=== PATIENT | male | born 1945 | race Caucasian/White ===

== ENCOUNTER 2018-05-29 08:15 | Emergency (ER) | payer MEDICARE, OTHER ==
[~2018-05-29] VITALS: Ht 177.8 cm; Wt 92.1 kg
[~2018-05-29 08:15] MED LIST: CADUET 10 MG-11 EACH PO; LISINOPRIL40 MG PO; NORCO 10-325 T1 EACH PO; PRILOSEC OTC20 MG PO; SUCRALFATE1 GM PO; TESTOSTERONE IM; VALIUM5 MG PO
[2018-05-29] MEDS ORDERED: SODIUM CHLORIDE 0.9% 1000ML 1,000 ML IV STA (08:18)
[2018-05-29] MEDS ORDERED: HYDRALAZINE HCL 20 MG/ML VIAL IV NR (08:30)
[2018-05-29 09:42] LABS: BASOPHILS % 0.4 % (0.0-1.0); EOSINOPHILS # (AUTO) 0.1 (0.0-0.4); EOSINOPHILS % 0.6 % (0.0-6.0); HEMATOCRIT 50.9 % (38.2-49.6); LYMPHOCYTES # (AUTO) 1.8 (1.0-3.2); LYMPHOCYTES % 22.4 % (18.0-39.1); MEAN CORPUSCULAR HEMOGLOBIN 31.4 pg (28-32); MEAN CORPUSCULAR HGB CONC 35.4 g/dL (31-35); MEAN CORPUSCULAR VOLUME 88.8 fL (81-99); MONOCYTES # (AUTO) 0.7 (0.2-0.8); MONOCYTES % 8.9 % (4.4-11.3); NEUTROPHILS # (AUTO) 5.5 (2.1-6.9); NEUTROPHILS % 67.1 % (38.7-80.0); PLATELET COUNT 263 x10e3/uL (140-360); RED BLOOD COUNT 5.73 x10e6/uL (4.3-5.7); RED CELL DISTRIBUTION WIDTH 12.3 % (11.7-14.4)
[2018-05-29 10:00] LABS: ALANINE AMINOTRANSFERASE 20 IU/L (0-55); ALBUMIN 4.8 g/dL (3.5-5.0); ALBUMIN/GLOBULIN RATIO 1.5 (0.8-2.0); ALKALINE PHOSPHATASE 62 IU/L (40-150); ANION GAP 13.6 mmol/L (8-16); BLOOD UREA NITROGEN 11 mg/dL (7-26); BUN/CREATININE RATIO 11 (6-25); CALCIUM 10.6 mg/dL (8.4-10.2); CARBON DIOXIDE 27 mmol/L (22-29); CHLORIDE 101 mmol/L (98-107); CREATINE KINASE 125 IU/L (30-200); CREATININE, SERUM 0.98 mg/dL (0.72-1.25); EST GLOMERULAR FILTRATION RATE > 60 ML/MIN (60-); GLUCOSE 113 mg/dL (74-118); POTASSIUM 3.6 mmol/L (3.5-5.1); SODIUM 138 mmol/L (136-145)
--- NOTE | 2018-05-29 10:19 | Diagnostic Imaging Report ---
EXAMINATION: CHEST SINGLE (PORTABLE) COMPARISON: None FINDINGS: TUBES and LINES: None. LUNGS: Low lung volumes. Linear subsegmental atelectasis at the right lung base. There is no evidence of pneumonia or pulmonary edema. PLEURA: No pleural effusion or pneumothorax. Slight nonspecific elevation of the right hemidiaphragm. HEART AND MEDIASTINUM: The cardiomediastinal silhouette is unremarkable. BONES AND SOFT TISSUES: No acute osseous lesion. Soft tissues are unremarkable. UPPER ABDOMEN: No free air under the diaphragm. IMPRESSION: No acute radiographic abnormality. Signed by: Dr. Sirena Gomez MD on 05/29/2018 10:16 AM
[2018-05-29 10:23] LABS: BILIRUBIN,URINE NEGATIVE (NEGATIVE); CLARITY,URINE CLEAR (CLEAR); COLOR,URINE YELLOW (YELLOW); KETONES,URINE NEGATIVE (NEGATIVE); LEUKOCYTE ESTERASE ,URINE NEGATIVE (NEGATIVE); NITRITE,URINE NEGATIVE (NEGATIVE); PROTEIN,URINE DIPSTICK NEGATIVE (NEGATIVE); URINE UROBILINOGEN 0.2 mg/dL (0.2 - 1)
--- NOTE | 2018-05-29 10:32 | Diagnostic Imaging Report ---
History:Dizziness, sweating more in the usual Comparison studies:None Technique: Axial images were obtained from the skull base to the vertex. Coronal and sagittal images reconstructed from the axial data. Intravenous contrast: None Dose modulation, iterative reconstruction, and/or weight based adjustment of the mA/kV was utilized to reduce the radiation dose to as low as reasonably achievable. Findings: Scalp/skull: No abnormalities. Extra-axial spaces: No masses. No fluid collections. Brain sulci: Age-appropriate. Ventricles: Age-appropriate. No hydrocephalus. Parenchyma: Few hypodensities in the supratentorial white matter are small vessel ischemic changes. No masses, hemorrhage, acute or chronic cortical vascular insults. Sellar/suprasellar region: No abnormalities. Craniocervical junction: Patent foramen magnum. No Chiari one malformation. Incidental findings: Atherosclerotic calcifications in the carotid siphons and vertebral . Impression: No acute abnormalities. Chronic findings: 1. Mild supratentorial white matter small vessel ischemic changes. Signed by: DR Darin Grace M.D. on 05/29/2018 10:29 AM
[2018-05-29 10:36] LABS: EPITHELIAL CELLS,URINE RARE /LPF; WBC,URINE (MAN) 0-5 /HPF (0-5)
--- OUTSIDE RECORDS SUMMARY | 2018-06-07 11:24 | XMS REPORT ---
Author Organization Unknown Address [address] [place] [id number] Phone [phone] Care Team Providers Care Senior Sales Operations Analyst Name Role Phone LUDWIG ESCALERA MD 124 [phone] IZZY KINGSLEY MD 104 [phone] Allergies Code Code System Name Reaction Severity Status Onset NKDA Medications Name Status Start Date Stop Date acetaminophen 300 mg-codeine 30 mg tablet Completed 08/18/2017 amlodipine 10 mg-atorvastatin 10 mg tablet TAKE 2 TABLETS BY MOUTH EVERY DAY DIRECTED Active Not available amoxicillin 500 mg capsule Completed 05/12/2016 Cialis 20 mg tablet Completed 05/12/2016 cyanocobalamin (vit B-12) 1,000 mcg/mL injection solution 1 cc every 2 weeks Completed 08/31/2016 Dexilant 60 mg capsule, delayed release Active Not available diazepam 5 mg tablet Active Not available doxepin 10 mg capsule Take 1 capsule as needed by oral route at bedtime for 30 days. Completed 02/11/2017 hydrochlorothiazide 12.5 mg capsule Take 1 capsule every day by oral route as needed for 90 days. Active Not available hydrochlorothiazide 12.5 mg tablet take 1 tablet by mouth every day Completed 05/12/2017 hydrocodone 10 mg-acetaminophen 325 mg tablet Active Not available Jublia 10 % topical solution with applicator Completed 05/12/2016 lidocaine-prilocaine 2.5 %-2.5 % topical cream Completed 08/18/2017 lisinopril 40 mg tablet Take one tablet by mouth once a day Active Not available meloxicam 15 mg tablet PRN - FROM SURGEON AT [facility] Active Not available methocarbamol 500 mg tablet Completed 08/18/2017 metronidazole 0.75 % topical gel Completed 08/31/2016 mtzdblnj-lmammbsbo-xhjdgadw 3.5 mg/mL-10,000 unit/mL-0.1% eye drops Completed 11/24/2017 omeprazole 20 mg capsule,delayed release Take every day by oral route for 90 days. Completed 08/13/2016 08/31/2016 omeprazole 40 mg capsule,delayed release Take 1 capsule every day by oral route. Active Not available Periogard 0.12 % mouthwash Completed 05/12/2016 prednisolone acetate 1 % eye drops,suspension Completed 05/12/2016 promethazine 25 mg tablet Completed 08/18/2017 ranitidine 300 mg tablet Take 1 tablet every day by oral route. Completed 05/12/2017 Stendra 200 mg tablet Completed 08/31/2016 sucralfate 1 gram tablet Take 1 tablet twice a day by oral route for 90 days. Completed 08/31/2016 testosterone cypionate 200 mg/mL intramuscular oil Inject 1.5 mL every 2 weeks by intramuscular route. Active Not available Viagra 100 mg tablet TAKE 1 TABLET BY MOUTH EVERY DAY NEEDED Active Not available Problems Name Status Onset Date Source Hyperlipidemia Active 05/12/2016 Anxiety Active 05/12/2016 Insomnia Active 05/12/2016 Hypertensive Disorder Active 05/12/2016 Gastroesophageal Reflux Disease Active 05/12/2016 Primary Erectile Dysfunction Active 05/12/2016 Decreased Testosterone Level Active 05/12/2016 Procedures Date Name Performed by 05/23/2017 Knee Surgery Notes: LEFT Information not available 11/10/2016 Carpal Tunnel Surgery Notes: Right Information not available 08/23/2016 Other Information not available 05/23/2016 Carpal Tunnel Surgery Notes: RT Information not available 11/30/2009 Egd Information not available 11/30/2009 Colonoscopy Notes: REPEAT IN 5 YRS Information not available 08/13/2016 Electrocardiogram [facility] [address] [place] [address] (Work Place) Lab Results Date Name Specimen Result Interpretation Description Value Range Status Address 08/21/2017 Fecal Occult Blood, Stool Fecal Globin (Medicare) by Immunochemistry not detected Final [facility] Laboratory: [address] [address], [place] 08/18/2017 PSA, Serum or Plasma PSA, Total 1.30 NG/mL <4.00 NG/mL Final [facility] Laboratory: [address] [place] [address], [place] 06/01/2017 PTH (Parathyroid Hormone), Intact, Serum or Plasma Normal Parathyroid Hormone, Intact 36 pg/mL 14-64 pg/mL Final [facility]: [address] [place], [place] [address] 05/12/2017 CBC W/ Auto Diff Wbc 6.61 x10*3/L 4.23-9.07 x10*3/L Final [facility]: [address] [facility] Rbc 5.15 10*12/L 4.63-6.08 10*12/L Final [facility]: [address] [facility] Hemoglobin 16.60 g/dL 13.70-17.50 g/dL Final [facility]: [address] [facility] Hematocrit 47.3 % 40.1-51.0 % Final [facility]: [address] [facility] Mcv 91.8 fL 80.0-100.0 fL Final [facility]: [address] [facility] Mch 32.2 pg 25.7-32.2 pg Final [facility]: [address] [facility] Mchc 35.1 g/dL 32.3-36.5 g/dL Final [facility]: [address] [facility] RDW-SD 42.0 fL 35.1-43.9 fL Final [facility]: [address] [facility] Platelet Count 289.0 k/uL 163.0-337.0 k/uL Final [facility]: [address] [facility] Mpv 10.1 fL 7.5-11.5 fL Final [facility]: [address] [facility] Neut% 60.4 % 34.0-67.9 % Final [facility]: [address] [facility] Lymph% 28.3 % 21.8-53.1 % Final [facility]: [address] [facility] Mon% 9.4 % 5.3-12.2 % Final [facility]: [address] [facility] Eos% 1.4 % 0.8-7.0 % Final [facility]: [address] [facility] Baso% 0.5 % 0.2-1.2 % Final [facility]: [address] [facility] Neut# 4.0 x10*3/L 1.8-5.4 x10*3/L Final [facility]: [address] Lymph# 1.9 x10*3/L 1.3-3.6 x10*3/L Final [facility]: [address] [place] [address] Mon# 0.6 x10*3/L 0.3-0.8 x10*3/L Final [facility]: [address] Eos# 0.09 x10*3/L 0.04-0.54 x10*3/L Final [facility]: [address] Baso# 0.03 x10*3/L 0.01-0.08 x10*3/L Final [facility]: [address] [facility] 05/12/2017 CMP, Serum or Plasma Alt 24 U/L 0-55 U/L Final [facility]: [address] Ast 25 U/L 5-34 U/L Final [facility]: [address] Bun 17.0 mg/dL 8.4-25.7 mg/dL Final [facility]: [address] Alk Phos 69 unit/L 40-150 unit/L Final [facility]: [address] High Glucose 106 mg/dL 70-99 mg/dL Final [facility]: [address] Albumin 4.7 g/dL 3.5-5.0 g/dL Final [facility]: [address] Creatinine 1.02 mg/dL 0.72-1.25 mg/dL Final [facility]: [address] eGFR Non- >60 mL/min/1.73m2 >60 mL/min/1.73m2 Final [facility]: [address] Total Bilirubin 1.1 mg/dL 0.2-1.2 mg/dL Final [facility]: [address] eGFR - >60 mL/min/1.73m2 >60 mL/min/1.73m2 Final [facility]: [address] [place] [address], [place] Sodium 143 mEq/L 136-145 mEq/L Final [facility]: [address] [address], [place] Potassium 4.4 mEq/L 3.5-5.1 mEq/L Final [facility]: [address] [address], [place] Chloride 103 mmol/L 98-107 mmol/L Final [facility]: [address] [address], [place] Total Protein 8.1 g/dL 6.4-8.3 g/dL Final [facility]: [address] High Calcium 10.4 mg/dL 8.8-10.0 mg/dL Final [facility]: [address] [place] [address], [place] Co2 27.1 mmol/L 23.0-31.0 mmol/L Final [facility]: [address] Anion Gap 13 calc Final [facility]: [address] 05/12/2017 Lipid Panel, Serum High Hdl 82 mg/dL 40-60 mg/dL Final [facility]: [address] Triglyceride 105 mg/dL 0-149 mg/dL Final [facility]: [address] VLDL Calc. 21 mg/dL Final [facility]: [address] cholesterol/HDL Ratio 2.5 mg/dL Final [facility]: [address] non-HDL Cholesterol Calc. 120 mg/dL 0-160 mg/dL Final [facility]: [address] High Cholesterol 202 mg/dL 0-199 mg/dL Final [facility]: [address] LDL Calc. 99 mg/dL 0-130 mg/dL Final [facility]: [address] 02/11/2017 CMP, Serum or Plasma Alt 22 U/L 0-55 U/L Final [facility]: [address] Ast 24 U/L 5-34 U/L Final [facility]: [address] Bun 17.0 mg/dL 8.4-25.7 mg/dL Final [facility]: [address], [place] Alk Phos 68 unit/L 40-150 unit/L Final [facility]: [address], [place] High Glucose 120 mg/dL 70-99 mg/dL Final [facility]: [address], [place] Albumin 4.8 g/dL 3.5-5.0 g/dL Final [facility]: [address], [place] Creatinine 1.03 mg/dL 0.72-1.25 mg/dL Final [facility]: [address], [place] eGFR Non- >60 mL/min/1.73m2 >60 mL/min/1.73m2 Final [facility]: [address] [facility] Total Bilirubin 1.0 mg/dL 0.2-1.2 mg/dL Final [facility]: [address] [facility] eGFR - >60 mL/min/1.73m2 >60 mL/min/1.73m2 Final [facility]: [address] [facility] Sodium 137 mEq/L 136-145 mEq/L Final [facility]: [address] [facility] Potassium 4.2 mEq/L 3.5-5.1 mEq/L Final [facility]: [address] [facility] Chloride 101 mmol/L 98-107 mmol/L Final [facility]: [address], [place] Total Protein 8.2 g/dL 6.4-8.3 g/dL Final [facility]: [address] [facility] High Calcium 10.1 mg/dL 8.8-10.0 mg/dL Final [facility]: [address], [place] Co2 24.4 mmol/L 23.0-31.0 mmol/L Final [facility]: [address], [place] Anion Gap 12 calc Final [facility]: [address], [place] 02/11/2017 Lipid Panel, Serum High Hdl 80 mg/dL 40-60 mg/dL Final [facility]: [address] Triglyceride 148 mg/dL 0-149 mg/dL Final [facility]: [address] VLDL Calc. 30 mg/dL Final [facility]: [address] cholesterol/HDL Ratio 3 mg/dL Final [facility]: [address] non-HDL Cholesterol Calc. 153 mg/dL 0-160 mg/dL Final [facility]: [address] High Cholesterol 233 mg/dL 0-199 mg/dL Final [facility]: [address] LDL Calc. 123 mg/dL 0-130 mg/dL Final [facility]: [address] 02/11/2017 Testosterone, Total, Serum Low Testosterone, Total 220.60 NG/dL 220.91-715.81 NG/dL Final [facility]: [address] 11/12/2016 CMP, Serum or Plasma Alt 30 U/L 0-55 U/L Final [facility]: [address] Ast 26 U/L 5-34 U/L Final [facility]: [address] Bun 16 mg/dL 8-26 mg/dL Final [facility]: [address] Alk Phos 66 unit/L 40-150 unit/L Final [facility]: [address] Glucose 97 mg/dL 70-99 mg/dL Final [facility]: [address] Albumin 4.7 g/dL 3.5-5.0 g/dL Final [facility]: [address] Creatinine 0.84 mg/dL 0.72-1.25 mg/dL Final [facility]: [address] eGFR Non- >60 mL/min/1.73m2 >60 mL/min/1.73m2 Final [facility]: [address] Total Bilirubin 0.9 mg/dL 0.2-1.2 mg/dL Final [facility]: [address] eGFR - >60 mL/min/1.73m2 >60 mL/min/1.73m2 Final [facility]: [address] [place] [address], [place] Sodium 137 mEq/L 137-144 mEq/L Final [facility]: [address] Potassium 3.9 mEq/L 3.5-5.0 mEq/L Final [facility]: [address] [place] [address], [place] Chloride 103 mmol/L 101-110 mmol/L Final [facility]: [address] [place] [address], [place] Total Protein 7.8 g/dL 6.4-8.3 g/dL Final [facility]: [address] Calcium 9.8 mg/dL 8.4-10.2 mg/dL Final [facility]: [address] Co2 22.2 mmol/L 22.0-31.0 mmol/L Final [facility]: [address] Anion Gap 12 calc Final [facility]: [address] 11/12/2016 Lipid Panel, Serum High Hdl 66 mg/dL 40-60 mg/dL Final [facility]: [address] High Triglyceride 150 mg/dL 0-149 mg/dL Final [facility]: [address] VLDL Calc. 30 mg/dL Final [facility]: [address] cholesterol/HDL Ratio 3 mg/dL Final [facility]: [address] non-HDL Cholesterol Calc. 136 mg/dL 0-160 mg/dL Final [facility]: [address] High Cholesterol 202 mg/dL 0-199 mg/dL Final [facility]: [address] LDL Calc. 106 mg/dL 0-130 mg/dL Final [facility]: [address] 11/12/2016 PSA, Serum or Plasma PSA, Total 1.51 NG/mL <4.00 NG/mL Final [facility]: [address] 11/12/2016 Testosterone, Total, Serum Low Testosterone, Total 156.10 NG/dL 220.91-715.81 NG/dL Final [facility]: [address] [facility] 08/13/2016 CMP, Serum or Plasma Alt 28.0 U/L 0.0-55.0 U/L Final [facility]: [address] Ast 21.0 U/L 5.0-34.0 U/L Final [facility]: [address] Bun 14.0 mg/dL 8.0-26.0 mg/dL Final [facility]: [address] Alk Phos 57.0 unit/L 40.0-150.0 unit/L Final [facility]: [address] High Glucose 118.0 mg/dL 70.0-99.0 mg/dL Final [facility]: [address] Albumin 4.7 g/dL 3.5-5.0 g/dL Final [facility]: [address] Creatinine 0.9 mg/dL 0.7-1.3 mg/dL Final [facility]: [address] eGFR Non- >60 mL/min/1.73m2 >60.0 mL/min/1.73m2 Final [facility]: [address] High Total Bilirubin 1.4 mg/dL 0.2-1.2 mg/dL Final [facility]: [address] eGFR - >60 mL/min/1.73m2 >60.0 mL/min/1.73m2 Final [facility]: [address] Sodium 139.0 mEq/L 137.0-144.0 mEq/L Final [facility]: [address] Potassium 4.1 mEq/L 3.5-5.0 mEq/L Final [facility]: [address] Chloride 105.0 mmol/L 101.0-110.0 mmol/L Final [facility]: [address] Total Protein 7.4 g/dL 6.4-8.3 g/dL Final [facility]: [address] Calcium 9.9 mg/dL 8.4-10.2 mg/dL Final [facility]: [address] Co2 23 mmol/L 22-31 mmol/L Final [facility]: [address] Anion Gap 11.0 calc Final [facility]: [address] [place] [address], [place] 08/13/2016 Lipid Panel, Serum High Hdl 62.0 mg/dL 40.0-60.0 mg/dL Final [facility]: [address] Triglyceride 114.0 mg/dL 0.0-149.0 mg/dL Final [facility]: [address] VLDL Calc. 22.8 mg/dL Final [facility]: [address] cholesterol/HDL Ratio 2.7 mg/dL Final [facility]: [address] non-HDL Cholesterol Calc. 107.0 mg/dL 0.0-160.0 mg/dL Final [facility]: [address] Cholesterol 169.0 mg/dL 0.0-199.0 mg/dL Final [facility]: [address] LDL Calc. 84.2 mg/dL 0.0-130.0 mg/dL Final [facility]: [address] [address], [place] 08/13/2016 Testosterone, Total, Serum Testosterone, Total 370.1 NG/dL 220.9-715.8 NG/dL Final [facility]: [address] [address], [place] 05/15/2016 Drug Screen, Urine No observation recorded. [facility]: [address] [place] [address], [place] 05/15/2016 Drug Screen, Urine No observation recorded. [facility]: [address] [place] [address], [place] 05/12/2016 PSA, Serum or Plasma PSA, Total 1.96 NG/mL <4.00 NG/mL Final [facility]: [address] 05/12/2016 Testosterone, Total, Serum High Testosterone, Total >1500.0 NG/dL 220.9-715.8 NG/dL Final [facility]: [address] [address], [place] 10/28/2015 CBC W/ Auto Diff No observation recorded. 07/23/2015 CMP, Serum or Plasma No observation recorded. Glucose, Fingerstick, Blood Blood Glucose: mg/dl 106 [facility]: [address] [facility] Electrocardiogram No observation recorded. [facility]: [address] [facility] Past Encounters 11/24/2017 Anxiety; Hyperlipidemia; Hypertensive Disorder; Primary Erectile Dysfunction; Decreased Testosterone Level; Body Mass Index 25-29 - Overweight Gilberto Blount MD: [address] [place] [phone], Ph. 08/18/2017 Adult Health Examination; Anxiety; Hypertensive Disorder; Decreased Testosterone Level; Gastroesophageal Reflux Disease; Hyperlipidemia; Primary Erectile Dysfunction; Swelling of Eyelid; Body Mass Index 25-29 - Overweight; Advance Directive Discussed with Patient; Depression Screening; Screening for Malignant Neoplasm of Colon; At Risk for Falls Gilberto Blount MD: [address] [place] [phone], Ph. 06/01/2017 Hypercalcemia Gilberto Blonut MD: [address] [place] [phone], Ph. 05/12/2017 Hyperlipidemia; Hypertensive Disorder; Anxiety; Influenza Vaccination; Viral Immunization; Pneumococcal Vaccination; Decreased Testosterone Level; Primary Erectile Dysfunction Gilberto Blount MD: [address] [place] [phone], Ph. 02/11/2017 Primary Erectile Dysfunction; Hypertensive Disorder; Hyperlipidemia; Gastroesophageal Reflux Disease; Insomnia; Anxiety; Decreased Testosterone Level Gilberto Blount MD: [address] [place] [phone], Ph. 11/12/2016 Anxiety; Insomnia; Hypertensive Disorder; Hyperlipidemia; Decreased Testosterone Level; Primary Erectile Dysfunction Gilberto Blount MD: [address] [place] [phone], Ph. 09/10/2016 Anxiety; Influenza Vaccination; Insomnia Gilberto Blount MD: [address] [place] [phone], Ph. 08/31/2016 Hyperglycemia; Anxiety; Hyperlipidemia; Hypertensive Disorder; Insomnia Gilberto Blount MD: [address] [place] [phone], Ph. 08/13/2016 Hyperlipidemia; Hypertensive Disorder; Decreased Testosterone Level; Anxiety; Primary Erectile Dysfunction; Insomnia; Electrocardiogram Abnormal Gilberto Blount MD: [address] [place] [phone], Ph. 05/12/2016 Anxiety; Hyperlipidemia; Hypertensive Disorder; Primary Erectile Dysfunction; Decreased Testosterone Level; Lack of Energy; Long-term Drug Therapy Gilberto Blount MD: [address] [place] [phone], Ph. Social History Smoking Status Former Smoker (2 PPD) Notes: quit: AGE 37 Vaccine List Vaccine Type influenza, high dose seasonal 05/12/20170.5 mL influenza, seasonal, injectable 09/10/20160.5 mL pneumococcal conjugate PCV 13 05/12/20170.5 mL Plan of Care Patient Instructions It was good to see you in the office today for your Medicare Annual Wellness Visit. You have been provided some information on healthy nutrition, including a diet rich in fruits and vegetables, minimizing simple carbohydrates, salt, and saturated fats. I want to encourage regular cardiovascular exercise such as walking at least 30 minutes daily, 5 times per week. Please remember to schedule any preventive health measures that we talked about today. You have also been provided education on fall prevention and community- based lifestyle interventions to help reduce health risks and promote healthy living in your [employer] folder. Screening Recommendations 1. Vaccines Pneumococcal: discussed today and information sent with patient in their [facility] health folder Influenza: discussed today and information sent with patient in their [facility] health folder Shingles: discussed today and information sent with patient in their [facility] health folder Tetanus: discussed today and information sent with patient in their [facility] health folder 2. Prostate Screening: discussed today and information sent with patient in their [facility] health folder 3. Colorectal cancer Screening Colonoscopy: discussed today and information sent with patient in their [facility] health folder Fecal Occult Blood: discussed today and information sent with patient in their [facility] health folder 4. Bone Mass Measurement: discussed today 5. Eye Exam Screening: discussed today 6. Cholesterol Screening: discussed today 7. Diabetes Screening: discussed today Reminders Provider Appointments None recorded. Lab None recorded. Referral None recorded. Procedures None recorded. Surgeries None recorded. Imaging None recorded. Vitals 11/24/2017 01:30PM Est Patient Height Weight BMI Blood Pressure 5 ft 10 in 205 lbs 29.4 kg/m2 (1) 148/80 mm[Hg] (2) 130/80 mm[Hg] 08/18/2017 11:00AM Est Patient Height Weight BMI Blood Pressure 5 ft 10 in 197 lbs 28.3 kg/m2 142/78 mm[Hg] 05/12/2017 02:30PM Est Patient Height Weight BMI Blood Pressure 5 ft 10 in 193 lbs 27.7 kg/m2 140/80 mm[Hg] 02/11/2017 09:00AM Est Patient Height Weight BMI Blood Pressure 5 ft 10 in 206 lbs 29.6 kg/m2 132/86 mm[Hg] 11/12/2016 11:30AM Est Patient Height Weight BMI Blood Pressure 5 ft 10 in 203 lbs 29.1 kg/m2 (1) 150/87 mm[Hg] (2) 145/85 mm[Hg] 09/10/2016 11:30AM Est Patient Height Weight BMI Blood Pressure 5 ft 10 in 200 lbs 28.7 kg/m2 135/82 mm[Hg] 08/31/2016 09:30AM Work In Same Day Height Weight BMI Blood Pressure 5 ft 10 in 200 lbs 28.7 kg/m2 (1) 146/92 mm[Hg] (2) 154/90 mm[Hg] 08/13/2016 09:15AM Est Patient Height Weight BMI Blood Pressure 5 ft 10 in 203 lbs 29.1 kg/m2 (1) 154/92 mm[Hg] (2) 150/88 mm[Hg] 05/12/2016 02:45PM Est Patient Height Weight BMI Blood Pressure 5 ft 10 in 203 lbs 29.1 kg/m2 (1) 142/85 mm[Hg] (2) 142/85 mm[Hg]
== END 2018-05-29 12:41 | disposition home or self-care (01) ==
LOC: ER 08:15
DX: R42 Dizziness and giddiness (principal); R51 Headache; I10 Essential (primary) hypertension; E11.9 Type 2 diabetes mellitus without complications
CPT/HCPCS: 36415; 70450; 71045; 80053; 81001; 82550; 82553; 84484; 85025; 93005; 99284

== ENCOUNTER → 2021-04-24 | Day surgery (SDC) | payer MEDICARE, OTHER ==
[2021-04-22 11:21] LABS: BASOPHILS % 0.5 % (0.0-1.0); EOSINOPHILS # (AUTO) 0.1 (0.0-0.4); EOSINOPHILS % 1.4 % (0.0-6.0); HEMATOCRIT 38.6 % (38.2-49.6); HEMOGLOBIN 13.6 g/dL (14.0-18.0); LYMPHOCYTES # (AUTO) 1.5 (1.0-3.2); LYMPHOCYTES % 27.1 % (18.0-39.1); MEAN CORPUSCULAR HEMOGLOBIN 31.2 pg (28-32); MEAN CORPUSCULAR HGB CONC 35.2 g/dL (31-35); MEAN CORPUSCULAR VOLUME 88.5 fL (81-99); MONOCYTES # (AUTO) 0.5 (0.2-0.8); MONOCYTES % 9.2 % (4.4-11.3); NEUTROPHILS # (AUTO) 3.4 (2.1-6.9); NEUTROPHILS % 61.4 % (38.7-80.0); PLATELET COUNT 248 x10e3/uL (140-360); RED BLOOD COUNT 4.36 x10e6/uL (4.3-5.7); RED CELL DISTRIBUTION WIDTH 12.6 % (11.7-14.4)
[2021-04-22 11:39] LABS: ANION GAP 15.8 mmol/L (8-16); CALCIUM 9.3 mg/dL (8.4-10.2); CREATININE, SERUM 0.89 mg/dL (0.72-1.25); POTASSIUM 3.8 mmol/L (3.5-5.1)
[~2021-04-24] MED LIST changes: +FENTANYL CITRATE/PF 100MCG/2 ML INJ ONE; +HYDROCHLOROTHIA25 MG PO; +HYDROCODONE/APAP 10MG-325MG TAB ONE; +SODIUM CHLORIDE 0.9% 50ML 100 ML ONE
[2021-04-24 11:00] VITALS: BP 140/72
== END | disposition home or self-care (01) ==
LOC: OR 07:25
PROVIDERS: ATTEND Orthopaedic Surgery
DX: G56.02 Carpal tunnel syndrome, left upper limb (principal); M65.352 Trigger finger, left little finger; M25.532 Pain in left wrist; M12.2 Villonodular synovitis (pigmented); Z01.812 Encounter for preprocedural laboratory examination; Z01.818 Encounter for other preprocedural examination; Z20.822 Contact with and (suspected) exposure to COVID-19; F41.9 Anxiety disorder, unspecified; Z86.73 Personal history of transient ischemic attack (TIA), and cerebral infarction without residual deficits
CPT/HCPCS: 25115; 26055; 36415; 64721; 71046; 80048; 85025; J0690; J3010; U0002

== ENCOUNTER → 2022-04-07 | Day surgery (SDC) | payer MEDICARE, OTHER ==
[2022-04-02 12:16] LABS: BASOPHILS % 0.7 % (0.0-1.0); EOSINOPHILS # (AUTO) 0.2 (0.0-0.4); EOSINOPHILS % 2.6 % (0.0-6.0); HEMATOCRIT 37.2 % (38.2-49.6); LYMPHOCYTES # (AUTO) 1.8 (1.0-3.2); LYMPHOCYTES % 31.2 % (18.0-39.1); MEAN CORPUSCULAR HEMOGLOBIN 30.7 pg (28-32); MEAN CORPUSCULAR HGB CONC 34.9 g/dL (31-35); MEAN CORPUSCULAR VOLUME 87.9 fL (81-99); MONOCYTES # (AUTO) 0.6 (0.2-0.8); MONOCYTES % 9.4 % (4.4-11.3); NEUTROPHILS # (AUTO) 3.2 (2.1-6.9); NEUTROPHILS % 55.1 % (38.7-80.0); PLATELET COUNT 252 x10e3/uL (140-360); RED BLOOD COUNT 4.23 x10e6/uL (4.3-5.7); RED CELL DISTRIBUTION WIDTH 12.5 % (11.7-14.4)
[2022-04-02 12:36] LABS: CALCIUM 8.9 mg/dL (8.4-10.2); CREATININE, SERUM 0.9 mg/dL (0.72-1.25)
[~2022-04-07] MED LIST changes: +ACETAMINOPHEN 1000 MG/100 ML 100 ML IV ONE; +AMLODIPINE-ATO1 EAC5 PO; +BUPIVACAINE 0.25% 30ML SDV ONE; +DEXILANT60 MG PO; +FLOMAX0.4 MG PO; +FUROSEMIDE40 MG PO; +GEMTESA75 MG PO; +KLOR-CON M2020 MEQ PO; +MIDAZOLAM HCL 2 MG/2 ML VIAL ONE; +MUPIROCIN 2% OINT 22 GM TUBE ONE; +PROPOFOL IV EMULSION 10 MG/ML 20 ML VIAL ONE; +SILDENAFIL PO; -SODIUM CHLORIDE 0.9% 50ML 100 ML ONE
[2022-04-07 09:30] VITALS: BP 130/78
== END | disposition home or self-care (01) ==
LOC: OR 05:45 → EDSTATUS 07:30
PROVIDERS: ATTEND Plastic Surgery
DX: M65.321 Trigger finger, right index finger (principal); M65.331 Trigger finger, right middle finger; M06.9 Rheumatoid arthritis, unspecified; M19.90 Unspecified osteoarthritis, unspecified site; I11.0 Hypertensive heart disease with heart failure; I50.9 Heart failure, unspecified; I49.3 Ventricular premature depolarization; K21.9 Gastro-esophageal reflux disease without esophagitis; N40.0 Benign prostatic hyperplasia without lower urinary tract symptoms; M54.9 Dorsalgia, unspecified; F41.9 Anxiety disorder, unspecified; Z01.810 Encounter for preprocedural cardiovascular examination; Z01.812 Encounter for preprocedural laboratory examination; Z01.818 Encounter for other preprocedural examination; Z20.822 Contact with and (suspected) exposure to COVID-19; Z79.899 Other long term (current) drug therapy
CPT/HCPCS: 0223U; 26055 ×2; 36415; 71046; 80048; 85025; 93005; J0131; J0690; J2250; J2704; J3010